=== PATIENT | female | born 1975 | race Caucasian/White ===

== ENCOUNTER 2021-01-21 11:28 | Emergency (ER) | payer MEDICAID ==
[~2021-01-21] VITALS: Ht 157.5 cm; Wt 87.1 kg
[~2021-01-21 11:28] MED LIST: IBUP-974 PO; PREN-385 PO
--- NOTE | 2021-01-21 11:28 | NUR ---
Patient BIBA ALS, transferred to bed 5. RN evaluating the patient at bedside.
[2021-01-21 11:36] VITALS: BP 112/74
--- NOTE | 2021-01-21 11:37 | NUR ---
Dr. Grajeda at pt bedside for further evaluation.
--- NOTE | 2021-01-21 11:41 | NUR ---
45 Y/O FEMALE BIBA C/O SOB WHILE AT [facility] RECEIVING MODERNA VACCINE [id number] AGO. PT BECAME SOB AND FELT WEAK, GIVEN 0.3 MG EPI IM AND BENADRYL 25MG IM. PT STATES SHE HAS SOME BACK PAIN /10 DESCRIBES ACHING NON-RADIATING [id number] AGO. LUNGS ARE CLEAR TO AUSCULTATION BILATERALLY, SOME LABORED BREATHING NOTED WITH TACHYPNEA, SPO2 100% RA. PT DENIES N/V, DENIES FEVER/CHILLS. DENIES PMH NKA
--- NOTE | 2021-01-21 12:12 | NUR ---
Spoke with pt family for updates.
--- NOTE | 2021-01-21 14:34 | NUR ---
Pt resting eyese closed, visible equal rise and fall of chest, VSS, will continue to monitor.
[2021-01-21 15:11] VITALS: BP 128/71
--- NOTE | 2021-01-21 15:11 | NUR ---
Patient discharged with v/s stable. Written and verbal after care instructions given and explained. Patient verbalized understanding. Ambulatory with steady gait. All questions addressed prior to discharge. Advised to follow up with PMD.
== END 2021-01-21 15:11 | disposition home or self-care (01) ==
LOC: MED 11:28
DX: T78.40XA Allergy, unspecified, initial encounter (principal)
CPT/HCPCS: 99281